=== PATIENT | female | born 1990 | race Caucasian/White ===

== ENCOUNTER 2021-11-01 15:05 | Emergency (ER) | payer OTHER ==
[~2021-11-01] VITALS: Ht 162.6 cm; Wt 65.5 kg
[2021-11-01 16:16] LABS: AMPHETAMINES LEVEL URINE POSITIVE (NEGATIVE); BARBITURATES URINE NEGATIVE (NEGATIVE); BENZODIAZEPINES URINE NEGATIVE (NEGATIVE); CANNABINOIDS URINE NEGATIVE (NEGATIVE); COCAINE METABOLITE URINE NEGATIVE (NEGATIVE); METHADONE URINE NEGATIVE (NEGATIVE); OPIATES URINE NEGATIVE (NEGATIVE); PHENCYCLIDINE URINE NEGATIVE (NEGATIVE)
[2021-11-01] MEDS ORDERED: diphenhydrAMINE 50MG/ML VIAL (J1200) IM ONE (16:40)
[2021-11-01] MEDS ORDERED: HALOPERIDOL 5MG/ML VIAL (J1630 PER 1) IM ONE (16:40)
[2021-11-01] MEDS ORDERED: LORazepam 2 MG/ML VIAL IM ONE (16:40)
[2021-11-01 16:58] LABS: RSV AMPLIFICATION NEGATIVE (NEGATIVE)
[2021-11-01 17:08] LABS: HEMOGLOBIN 13.7 g/dl (12.0-15.5); MEAN CORPUSCULAR HEMOGLOBIN 30.9 pg (27.0-33.0); MEAN CORPUSCULAR HGB CONC 35.1 g/dl (32.0-36.5); PLATELET COUNT, AUTOMATED 229 10^3/uL (150-450); RED BLOOD COUNT 4.43 10^6/uL (4.00-5.40); WHITE BLOOD COUNT 10.2 10^3/uL (4.0-10.0)
[2021-11-01 17:46] LABS: ERYTHROCYTE SEDIMENTATION RATE 11 mm/hr (0-20)
[2021-11-01 17:48] LABS: ACETAMINOPHEN LEVEL < 2.0 UG/ML (10.0-30.0); ALBUMIN 4.3 GM/DL (3.2-5.2); ALT/SGPT 56 U/L (12-78); BILIRUBIN,DIRECT 0.2 MG/DL (0.0-0.2); BILIRUBIN,TOTAL 1.3 MG/DL (0.2-1.0); BLOOD UREA NITROGEN 14 MG/DL (7-18); C REACTIVE PROTEIN QUANTITATIV 2.61 MG/DL (0.00-0.30); CALCIUM LEVEL 8.9 MG/DL (8.5-10.1); CARBON DIOXIDE LEVEL 17 MEQ/L (21-32); CHLORIDE LEVEL 106 MEQ/L (98-107); CREATININE FOR GFR 0.97 MG/DL (0.55-1.30); ETHYL ALCOHOL (ETHANOL) < 0.003 % (0.000-0.010); GLOMERULAR FILTRATION RATE > 60.0 (>60); GLUCOSE, FASTING 78 MG/DL (70-100); POTASSIUM SERUM 4.3 MEQ/L (3.5-5.1); SALICYLATE LEVEL < 1.7 MG/DL (5.0-30.0); SODIUM LEVEL 138 MEQ/L (136-145); TOTAL PROTEIN 7.5 GM/DL (6.4-8.2)
[2021-11-01] MEDS ORDERED: HOME MED LIST COMPLETE! XX SCH (18:50)
[2021-11-02] MEDS: BACTRIM 160MG/800MG DS TAB PO SCH ×2 (02:06→08:37)
[2021-11-02] MEDS ORDERED: GABA-283 PO (11:25)
[2021-11-02] MEDS ORDERED: BACT800T5 PO (13:21)
[2021-11-02 13:32] VITALS: BP 120/58
== END 2021-11-02 13:37 | disposition home or self-care (01) ==
LOC: M ED 15:05
DX: R44.3 Hallucinations, unspecified (principal); L03.114 Cellulitis of left upper limb; L03.115 Cellulitis of right lower limb; M77.31 Calcaneal spur, right foot; M25.774 Osteophyte, right foot; M85.871 Other specified disorders of bone density and structure, right ankle and foot; F41.9 Anxiety disorder, unspecified; F17.200 Nicotine dependence, unspecified, uncomplicated; F19.10 Other psychoactive substance abuse, uncomplicated; F10.10 Alcohol abuse, uncomplicated
CPT/HCPCS: 36415; 73130; 73630; 80048; 80076; 80143; 80307; 82077; 84443; 85027; 85652; 86140; 87040; 87631; 96372; 99285; J1200; J1630; J2060

== ENCOUNTER 2024-07-23 15:13 | Inpatient (IN) | payer OTHER, SELFPAY ==
[~2024-07-23] VITALS: Ht 160 cm; Wt 65.0 kg
[~2024-07-23 15:13] MED LIST: BACT800T5 PO; GABA-284 PO
[2024-07-23] MEDS ORDERED: STRA80CA PO (19:23)
[2024-07-23] MEDS ORDERED: GABA-1490 PO (19:23)
[2024-07-23] MEDS ORDERED: HOME MED LIST COMPLETE! XX SCH (19:25)
[2024-07-23 21:54] LABS: HEMATOCRIT 39.7 % (36.0-47.0); HEMOGLOBIN 14.3 g/dl (12.0-15.5); MEAN CORPUSCULAR HEMOGLOBIN 32.5 pg (27.0-33.0); MEAN CORPUSCULAR VOLUME 90.2 fl (80.0-96.0); PLATELET COUNT, AUTOMATED 258 10^3/uL (150-450)
[2024-07-23 22:21] LABS: ETHYL ALCOHOL (ETHANOL) 0.005 % (0.000-0.010)
[2024-07-23 22:22] LABS: SALICYLATE LEVEL < 3.0 MG/DL (<30)
[2024-07-23 22:23] LABS: ALBUMIN 3.9 G/DL (3.2-5.2); ALKALINE PHOSPHATASE 62 U/L (35-104); ALT/SGPT 23 U/L (7.0-40); AST/SGOT 15 U/L (<34); BILIRUBIN,DIRECT 0.5 MG/DL (<0.4); BILIRUBIN,TOTAL 1.4 MG/DL (0.3-1.2); BLOOD UREA NITROGEN 18 MG/DL (9-23); CALCIUM LEVEL 9.5 MG/DL (8.5-10.1); CARBON DIOXIDE LEVEL 26 MMOL/L (20-31); CHLORIDE LEVEL 104 MMOL/L (98-107); CREATININE FOR GFR 0.74 MG/DL (0.55-1.30); GLOMERULAR FILTRATION RATE > 60.0 (>60); GLUCOSE, FASTING 111 MG/DL (60-100); POTASSIUM SERUM 4.6 MMOL/L (3.5-5.1); SODIUM LEVEL 140 MMOL/L (136-145); TOTAL PROTEIN 6.6 G/DL (5.7-8.2)
[2024-07-23 22:25] LABS: THYROID STIMULATING HORMONE 2.409 uIU/ML (0.55-4.78)
[2024-07-23 22:32] LABS: HCG, SERUM QUALITATIVE NEGATIVE (NEGATIVE)
[2024-07-24 02:12] LABS: BARBITURATES URINE NEGATIVE (NEGATIVE); BENZODIAZEPINES URINE NEGATIVE (NEGATIVE); COCAINE METABOLITE URINE NEGATIVE (NEGATIVE); METHADONE URINE NEGATIVE (NEGATIVE); OPIATES URINE NEGATIVE (NEGATIVE); PHENCYCLIDINE URINE NEGATIVE (NEGATIVE)
[2024-07-24 02:14] LABS: AMPHETAMINES LEVEL URINE POSITIVE (NEGATIVE); CANNABINOIDS URINE POSITIVE (NEGATIVE)
[2024-07-24] MEDS ORDERED: MAALOX 30 ML SUSP *UDC PO PRN (04:45)
[2024-07-24] MEDS ORDERED: diphenhydrAMINE 25MG CAP PO PRN (04:45)
[2024-07-24] MEDS ORDERED: MOM 30ML SUSPENSION UDC PO PRN (04:45)
[2024-07-24] MEDS ORDERED: ACETAMINOPHEN 325 MG TAB PO PRN (04:45)
[2024-07-24] MEDS ORDERED: IBUPROFEN 400MG TAB PO PRN (04:45)
[2024-07-24 06:19] VITALS: BP 118/65; TEMP 98; O2SAT 100
[2024-07-24] MEDS: NICOTINE 14 MG/24 HR TRANSDERMAL TD SCH (09:00)
[2024-07-24] MEDS: diphenhydrAMINE 50MG CAP PO ONE (10:21)
[2024-07-24] MEDS: LORazepam 2 MG TAB PO ONE (10:23)
[2024-07-24 16:15] VITALS: BP 107/62; TEMP 97.7; O2SAT 98
[2024-07-25 07:05] VITALS: BP 137/74; TEMP 97.7; O2SAT 97
[2024-07-25] MEDS: BENZTROPINE 0.5 MG TAB PO SCH (09:39)
[2024-07-25 16:05] VITALS: BP 101/59; TEMP 98.3; O2SAT 97
[2024-07-25] MEDS: traZODone 50 MG TAB PO PRN (20:28)
[2024-07-26 06:50] VITALS: BP 100/53; TEMP 97.8; O2SAT 97
[2024-07-26] MEDS ORDERED: BENZ0.5T2 PO (11:22)
[2024-07-26] MEDS ORDERED: HALO5TAB33 PO (11:22)
== END 2024-07-26 13:40 | disposition home or self-care (01) | DRG 776 ==
LOC: M ED 15:13 → M ED INP 07-24 04:44 → M PSY 07-24 05:15
PROVIDERS: ADMIT Psychiatry & Neurology Neurology; ATTEND Psychiatry & Neurology Neurology
DX: F15.251 Other stimulant dependence with stimulant-induced psychotic disorder with hallucinations (principal); R45.851 Suicidal ideations; F17.290 Nicotine dependence, other tobacco product, uncomplicated; F41.9 Anxiety disorder, unspecified; F90.9 Attention-deficit hyperactivity disorder, unspecified type; Z90.49 Acquired absence of other specified parts of digestive tract; Z79.899 Other long term (current) drug therapy

== ENCOUNTER 2024-08-20 10:24 | Emergency (ER) | payer SELFPAY ==
[~2024-08-20] VITALS: Ht 162.6 cm; Wt 65.9 kg
[~2024-08-20 10:24] MED LIST changes: +BENZ0.5T2 PO; +GABA-1490 PO; +HALO5TAB33 PO; +STRA80CA PO
[2024-08-20 10:27] VITALS: BP 103/51; TEMP 96.8; O2SAT 99
[2024-08-20 11:54] LABS: BASO % 0.6 % (0.0-1.0); EOS # 0.2 10^3/uL (0.0-0.5); EOS % 3.1 % (0.0-3.0); HEMATOCRIT 46.1 % (36.0-47.0); HEMOGLOBIN 16.3 g/dl (12.0-15.5); LYMPH # 2.3 10^3/uL (1.5-5.0); LYMPH % 34.5 % (24.0-44.0); MEAN CORPUSCULAR HEMOGLOBIN 31.7 pg (27.0-33.0); MEAN CORPUSCULAR HGB CONC 35.4 g/dl (32.0-36.5); MEAN CORPUSCULAR VOLUME 89.5 fl (80.0-96.0); MONO # 0.3 10^3/uL (0.0-0.8); MONO % 4.3 % (2.0-8.0); NEUTROPHILS # 3.7 10^3/uL (1.5-8.5); NEUTROPHILS % 57.2 % (36.0-66.0); PLATELET COUNT, AUTOMATED 243 10^3/uL (150-450); RED BLOOD COUNT 5.15 10^6/uL (4.00-5.40); WHITE BLOOD COUNT 6.5 10^3/uL (4.0-10.0)
[2024-08-20 12:19] LABS: KETONE, URINE AUTO RFX NEGATIVE (NEGATIVE); LEUKOCYTE ESTERASE UR AUTO RFX 1+ (NEGATIVE); MUCUS, URINE RFX SMALL (NEGATIVE); NITRITE, URINE AUTO RFX NEGATIVE (NEGATIVE); RBC, URINE AUTO RFX 1 /HPF (0-3); SQUAM EPITHELIAL CELL UR AURFX 22 /HPF (0-6)
[2024-08-20 12:20] LABS: ETHYL ALCOHOL (ETHANOL) 0.004 % (0.000-0.010)
[2024-08-20 12:22] LABS: ALBUMIN 4.3 G/DL (3.2-5.2); ALKALINE PHOSPHATASE 73 U/L (35-104); ALT/SGPT 34 U/L (7.0-40); AST/SGOT 23 U/L (<34); BILIRUBIN,DIRECT 0.2 MG/DL (<0.4); BILIRUBIN,TOTAL 0.7 MG/DL (0.3-1.2); BLOOD UREA NITROGEN 19 MG/DL (9-23); CALCIUM LEVEL 9.2 MG/DL (8.5-10.1); CARBON DIOXIDE LEVEL 30 MMOL/L (20-31); CHLORIDE LEVEL 105 MMOL/L (98-107); GLOMERULAR FILTRATION RATE > 60.0 (>60); GLUCOSE, FASTING 91 MG/DL (60-100); POTASSIUM SERUM 4.3 MMOL/L (3.5-5.1); SALICYLATE LEVEL < 3.0 MG/DL (<30); SODIUM LEVEL 142 MMOL/L (136-145); TOTAL PROTEIN 7.3 G/DL (5.7-8.2)
[2024-08-20 12:23] LABS: THYROID STIMULATING HORMONE 1.387 uIU/ML (0.55-4.78)
[2024-08-20 12:30] LABS: AMPHETAMINES LEVEL URINE POSITIVE (NEGATIVE); BARBITURATES URINE NEGATIVE (NEGATIVE); BENZODIAZEPINES URINE NEGATIVE (NEGATIVE); CANNABINOIDS URINE NEGATIVE (NEGATIVE); COCAINE METABOLITE URINE NEGATIVE (NEGATIVE); METHADONE URINE NEGATIVE (NEGATIVE); OPIATES URINE NEGATIVE (NEGATIVE); PHENCYCLIDINE URINE NEGATIVE (NEGATIVE)
[2024-08-20 12:39] LABS: OSMOLALITY SERUM 311 MOSM/KG (275-295)
== END 2024-08-20 11:59 | disposition left against medical advice (07) ==
LOC: M ED 10:24
DX: Z53.21 Procedure and treatment not carried out due to patient leaving prior to being seen by health care provider (principal)

== ENCOUNTER 2025-02-04 10:07 | Emergency (ER) | payer MEDICAID, SELFPAY ==
[~2025-02-04] VITALS: Ht 157.5 cm; Wt 71.6 kg
[2025-02-04 10:35] LABS: BASO % 0.4 % (0.0-1.0); EOS # 0.1 10^3/uL (0.0-0.5); EOS % 1.6 % (0.0-3.0); HEMATOCRIT 39.2 % (36.0-47.0); HEMOGLOBIN 14.2 g/dl (12.0-15.5); LYMPH # 3.1 10^3/uL (1.5-5.0); MEAN CORPUSCULAR HEMOGLOBIN 32.3 pg (27.0-33.0); MEAN CORPUSCULAR HGB CONC 36.2 g/dl (32.0-36.5); MEAN CORPUSCULAR VOLUME 89.1 fl (80.0-96.0); MONO # 0.6 10^3/uL (0.0-0.8); MONO % 7.2 % (2.0-8.0); NEUTROPHILS # 4.4 10^3/uL (1.5-8.5); NEUTROPHILS % 53.7 % (36.0-66.0); PLATELET COUNT, AUTOMATED 227 10^3/uL (150-450); WHITE BLOOD COUNT 8.3 10^3/uL (4.0-10.0)
[2025-02-04 10:52] VITALS: TEMP 98.2
[2025-02-04 11:01] LABS: HCG, SERUM QUALITATIVE NEGATIVE (NEGATIVE)
[2025-02-04 11:07] LABS: ETHYL ALCOHOL (ETHANOL) < 0.003 % (0.000-0.010)
[2025-02-04 11:09] LABS: SALICYLATE LEVEL < 3.0 MG/DL (<30)
[2025-02-04 11:10] LABS: ALBUMIN 4.6 G/DL (3.2-5.2); ALKALINE PHOSPHATASE 49 U/L (35-104); ALT/SGPT 44 U/L (7.0-40); AST/SGOT 36 U/L (<34); BILIRUBIN,DIRECT 0.7 MG/DL (<0.4); BLOOD UREA NITROGEN 21 MG/DL (9-23); CALCIUM LEVEL 9.7 MG/DL (8.5-10.1); CARBON DIOXIDE LEVEL 18 MMOL/L (20-31); CHLORIDE LEVEL 108 MMOL/L (98-107); CREATININE FOR GFR 0.88 MG/DL (0.55-1.30); GLOMERULAR FILTRATION RATE 87.8 (>60); GLUCOSE, FASTING 77 MG/DL (60-100); POTASSIUM SERUM 3.9 MMOL/L (3.5-5.1); SODIUM LEVEL 144 MMOL/L (136-145); TOTAL PROTEIN 6.9 G/DL (5.7-8.2)
[2025-02-04 11:12] LABS: THYROID STIMULATING HORMONE 2.611 uIU/ML (0.55-4.78)
[2025-02-04] MEDS: NS (Normal Saline) 0.9% 1,000 ML IV ONE ×2 (11:14→12:56)
[2025-02-04 11:23] LABS: CPK CREATINE PHOSPHOKINASE 261 U/L (34-145)
[2025-02-04] MEDS ORDERED: ZOLO100T PO (12:29)
[2025-02-04] MEDS ORDERED: CLON-412 PO (12:29)
[2025-02-04] MEDS ORDERED: BUPR-766 PO (12:29)
[2025-02-04] MEDS ORDERED: HOME MED LIST COMPLETE! XX SCH (12:30)
[2025-02-04 12:35] LABS: ABG BASE EXCESS -6.4 (-2.0-2.0); ABG HCO3 18.2 MMOL/L (22.0-26.0); ABG O2 SATURATION 96.7 % (95.0-99.0); ABG PARTIAL PRESSURE CO2 33.5 mmHg (35.0-45.0); ABG PARTIAL PRESSURE O2 97.5 mmHg (75.0-100.0); ABG STANDARD HCO3 19.2 MMOL/L. (22.0-26.0); ABG TOTAL CO2 19.2 MMOL/L (22.0-29.0); ABG pH (ARTERIAL) 7.352 UNITS (7.350-7.450)
[2025-02-04 14:42] LABS: MB/CK RELATIVE INDEX 1.91 (< OR =4)
[2025-02-04 15:31] VITALS: BP 121/65
[2025-02-04 15:35] LABS: CK-MB VALUE MASS 9.4 NG/ML (<3.6)
[2025-02-04 15:40] LABS: MB/CK RELATIVE INDEX 2.41 (< OR =4)
[2025-02-04 16:15] VITALS: O2SAT 97
== END 2025-02-04 16:55 | disposition home or self-care (01) ==
LOC: EDBD 10:07 → M ED 10:07
DX: R07.9 Chest pain, unspecified (principal); F19.10 Other psychoactive substance abuse, uncomplicated; F41.9 Anxiety disorder, unspecified; F32.A Depression, unspecified; F17.200 Nicotine dependence, unspecified, uncomplicated; Z79.899 Other long term (current) drug therapy

== ENCOUNTER 2025-03-28 16:17 | Emergency (ER) | payer MEDICAID, OTHER ==
[~2025-03-28] VITALS: Ht 162.6 cm; Wt 70.3 kg
[~2025-03-28 16:17] MED LIST changes: +BUPR-766 PO; +CLON-412 PO; +ZOLO100T PO
[2025-03-28 16:20] VITALS: TEMP 98.6
[2025-03-28 17:22] LABS: BASO # 0.0 10^3/uL (0.0-0.2); BASO % 0.5 % (0.0-1.0); EOS # 0.3 10^3/uL (0.0-0.5); EOS % 4.8 % (0.0-3.0); LYMPH # 2.4 10^3/uL (1.5-5.0); LYMPH % 39.7 % (24.0-44.0); MONO # 0.4 10^3/uL (0.0-0.8); MONO % 5.8 % (2.0-8.0); NEUTROPHILS # 2.9 10^3/uL (1.5-8.5); NEUTROPHILS % 48.9 % (36.0-66.0); PLATELET COUNT, AUTOMATED 247 10^3/uL (150-450)
[2025-03-28 17:37] LABS: HCG, SERUM QUANTITATIVE < 2.6 MIU/ML (<4.2)
[2025-03-28 17:38] LABS: CALCIUM LEVEL 8.9 MG/DL (8.5-10.1); CARBON DIOXIDE LEVEL 32 MMOL/L (20-31); CHLORIDE LEVEL 104 MMOL/L (98-107); CREATININE FOR GFR 0.69 MG/DL (0.55-1.30); GLOMERULAR FILTRATION RATE > 90.0 (>60); POTASSIUM SERUM 3.7 MMOL/L (3.5-5.1); SODIUM LEVEL 143 MMOL/L (136-145)
[2025-03-28 17:39] LABS: MUCUS, URINE RFX SMALL (NEGATIVE); RBC, URINE AUTO RFX 0 /HPF (0-3); SQUAM EPITHELIAL CELL UR AURFX 2 /HPF (0-6); WBC, URINE AUTO RFX 1 /HPF (0-3)
[2025-03-28 17:46] LABS: KETONE, URINE AUTO RFX NEGATIVE (NEGATIVE); LEUKOCYTE ESTERASE UR AUTO RFX TRACE (NEGATIVE); NITRITE, URINE AUTO RFX NEGATIVE (NEGATIVE)
[2025-03-28 18:24] VITALS: BP 101/53; O2SAT 100
== END 2025-03-28 18:25 | disposition home or self-care (01) ==
LOC: M ED 16:17
DX: N93.8 Other specified abnormal uterine and vaginal bleeding (principal)

== ENCOUNTER 2025-04-22 08:21 | Emergency (ER) | payer OTHER ==
[~2025-04-22] VITALS: Ht 162.6 cm; Wt 69.9 kg
[2025-04-22] MEDS ORDERED: LIDOCAINE 1% MDV 20 ML VIAL IM ONE (09:05)
[2025-04-22 09:23] VITALS: BP 94/44; TEMP 98.6; O2SAT 100
[2025-04-22] MEDS ORDERED: CEPH500C PO (10:36)
== END 2025-04-22 09:32 | disposition home or self-care (01) ==
LOC: M ED 08:21
DX: S61.307A Unspecified open wound of left little finger with damage to nail, initial encounter (principal); Y92.480 Sidewalk as the place of occurrence of the external cause; Y93.K1 Activity, walking an animal; Y99.9 Unspecified external cause status; Z79.2 Long term (current) use of antibiotics; Z79.899 Other long term (current) drug therapy

== ENCOUNTER 2025-04-22 10:14 | Emergency (ER) | payer OTHER ==
[~2025-04-22] VITALS: Ht 162.6 cm; Wt 70.0 kg
[2025-04-22 10:18] VITALS: BP 93/54; TEMP 97.6; O2SAT 100
[2025-04-22] MEDS ORDERED: CEPH500C PO (10:36)
== END 2025-04-22 10:44 | disposition home or self-care (01) ==
LOC: M ED 10:14
DX: S61.307A Unspecified open wound of left little finger with damage to nail, initial encounter (principal); Y92.480 Sidewalk as the place of occurrence of the external cause; Y93.K1 Activity, walking an animal; Y99.9 Unspecified external cause status; Z79.2 Long term (current) use of antibiotics; Z79.899 Other long term (current) drug therapy

== ENCOUNTER 2025-08-03 10:58 | Emergency (ER) | payer OTHER ==
[~2025-08-03] VITALS: Ht 162.6 cm; Wt 79.6 kg
[~2025-08-03 10:58] MED LIST changes: +CEPH500C PO
[2025-08-03 11:41] LABS: PLATELET COUNT, AUTOMATED 240 10^3/uL (150-450)
[2025-08-03] MEDS ORDERED: ARIP1TAB6 PO (11:55)
[2025-08-03] MEDS ORDERED: HYDR-3364 (11:55)
[2025-08-03 12:05] LABS: AMPHETAMINES LEVEL URINE NEGATIVE (NEGATIVE); BARBITURATES URINE NEGATIVE (NEGATIVE); BENZODIAZEPINES URINE NEGATIVE (NEGATIVE); CANNABINOIDS URINE NEGATIVE (NEGATIVE); COCAINE METABOLITE URINE NEGATIVE (NEGATIVE); METHADONE URINE NEGATIVE (NEGATIVE); OPIATES URINE NEGATIVE (NEGATIVE); PHENCYCLIDINE URINE NEGATIVE (NEGATIVE)
[2025-08-03 12:07] LABS: ETHYL ALCOHOL (ETHANOL) < 0.003 % (0.000-0.010)
[2025-08-03 12:09] LABS: ALT/SGPT 38 U/L (7.0-40); AST/SGOT 34 U/L (<34); CALCIUM LEVEL 8.9 MG/DL (8.5-10.1); CARBON DIOXIDE LEVEL 26 MMOL/L (20-31); CHLORIDE LEVEL 108 MMOL/L (98-107); CREATININE FOR GFR 0.79 MG/DL (0.55-1.30); GLOMERULAR FILTRATION RATE > 90.0 (>60); POTASSIUM SERUM 3.9 MMOL/L (3.5-5.1); SALICYLATE LEVEL < 3.0 MG/DL (<30); SODIUM LEVEL 143 MMOL/L (136-145)
[2025-08-03 12:54] LABS: URINE PREG TEST NEGATIVE (NEGATIVE)
[2025-08-03 14:20] VITALS: BP 118/61; TEMP 98.3; O2SAT 99
[2025-08-03] MEDS ORDERED: HOME MED LIST COMPLETE! XX SCH (14:25)
== END 2025-08-03 14:29 | disposition home or self-care (01) ==
LOC: M ED 10:58
DX: R44.0 Auditory hallucinations (principal); F17.200 Nicotine dependence, unspecified, uncomplicated; Z79.899 Other long term (current) drug therapy